=== PATIENT | female | born 1955 | race Caucasian/White ===

== ENCOUNTER 2021-01-29 20:47 | Observation (INO) | payer MEDICARE, OTHER ==
[2021-01-29 22:14] LABS: #Basophils 0.1 10x3/uL (0.0-0.2); #Eosinphils 0.2 10x3/uL (0.0-0.5); #Monocytes 0.6 10x3/uL (0.0-1.1); #Neutrophils 4.9 10x3/uL (1.5-8.4); %Basophils 0.7 % (0.0-2.0); %Eosinophils 2.6 % (0.0-6.0); %Lymphocytes 34.9 % (18.0-47.0); %Monocytes 7.2 % (0.0-10.0); %Neutrophils 54.4 % (40.0-75.0); Hemoglobin 11.4 g/dL (12.0-15.5); Mean Corpuscular HGB CONC 31.9 g/dL (32.0-36.0); Mean Corpuscular Hemoglobin 29.6 pg (27.0-33.0); Mean Corpuscular Volume 92.7 fl (81.6-98.3); Mean Platelet Volume 9.7 fl (7.4-10.4); Platelet Count 274 10x3/uL (150-450); Red Blood Cell (RBC) Count 3.85 10x6/uL (3.90-5.03); White Blood Cell (WBC) Count 8.9 10x3/uL (3.5-10.5)
[2021-01-29 22:29] LABS: ALT (SGPT) 8 U/L (8-55); AST (SGOT) 14 U/L (5-34); Albumin 3.9 g/dL (3.4-4.8); Alkaline Phosphatase 72 U/L (40-110); Anion Gap 15 mmol/L (10-20); BUN (Urea Nitrogen) 23 mg/dL (9.8-20.1); Bilirubin, Total 0.2 mg/dL (0.2-1.2); Calc. Creatinine Clearance 0 mL/min (70-130); Calcium 9.7 mg/dL (7.8-10.44); Carbon Dioxide 21 mmol/L (23-31); Chloride 106 mmol/L (98-107); Globulin 3.1 g/dL (2.4-3.5); Glucose 94 mg/dL (80-115); Potassium 3.3 mmol/L (3.5-5.1); Sodium 139 mmol/L (136-145)
[2021-01-30 00:28] LABS: INR-International Normal Ratio 0.9; PTT 28.7 sec (22.0-33.0); Prothrombin Time 10.3 sec (9.5-12.1)
[2021-01-30 00:51] LABS: SARS-CoV-2 NAA Rapid Test Not Detected (NotDetected)
[2021-01-30] MEDS ORDERED: HYDROcodone/Acetaminophen 5/325 mg Tablet PO PRN (01:02)
[2021-01-30] MEDS ORDERED: Acetaminophen 325 MG TAB PO PRN (01:02)
[2021-01-30] MEDS ORDERED: Ondansetron PF 4 MG/2 ML Vial IVP PRN (01:02)
[2021-01-30] MEDS ORDERED: Ondansetron ODT 4 MG TAB PO PRN (01:02)
[2021-01-30] MEDS ORDERED: traMADol HCl 50 MG TAB PO PRN (01:11)
[2021-01-30] MEDS ORDERED: Furosemide 40 MG TAB PO PRN (01:11)
[2021-01-30] MEDS ORDERED: Cyclobenzaprine 10 MG TAB PO PRN (01:11)
[2021-01-30] MEDS ORDERED: POTASSIUM GLUCONATE 99 MG PO PRN (02:43)
[2021-01-30 05:30] LABS: Cardiac Risk 3.9 (Less than 4.5)
[2021-01-30] MEDS ORDERED: Aspirin 81 mg Enteric Coated Tablet ONE (08:12)
[2021-01-30] MEDS ORDERED: Apixaban 5 MG TAB ONE (08:13)
[2021-01-30] MEDS ORDERED: Amlodipine 5 MG TAB ONE (08:13)
[2021-01-30] MEDS ORDERED: Potassium Chloride 20 MEQ TAB PO SCH (08:30)
[2021-01-30] MEDS ORDERED: Baclofen 10 MG TAB PO SCH (09:00)
[2021-01-30] MEDS ORDERED: Losartan Potassium 50 MG TAB PO SCH (09:00)
[2021-01-30] MEDS ORDERED: Apixaban 5 MG TAB PO SCH (09:00)
[2021-01-30] MEDS ORDERED: Hydrochlorothiazide 25 MG TAB PO SCH (09:00)
[2021-01-30] MEDS ORDERED: Zonisamide 100 MG CAP PO SCH (09:00)
[2021-01-30] MEDS ORDERED: Cyanocobalamin (Vitamin B-12) 1,000 MCG TAB PO SCH (09:00)
[2021-01-30] MEDS ORDERED: Amlodipine 5 MG TAB PO SCH (09:00)
[2021-01-30] MEDS ORDERED: DOCUSATE SODIUM 250 MG PO SCH (09:00)
[2021-01-30] MEDS ORDERED: Aspirin 81 mg Enteric Coated Tablet PO SCH (09:00)
[2021-01-30 10:35] VITALS: BP 109/54
[2021-01-30] MEDS ORDERED: Potassium Chloride 20 MEQ TAB ONE (12:32)
[2021-01-30] MEDS ORDERED: Atorvastatin Calcium 40 MG TAB PO SCH (21:00)
[2021-01-30] MEDS ORDERED: DIAZEPAM 10 MG PO SCH (21:00)
== END 2021-01-30 14:40 | disposition home or self-care (01) ==
LOC: CSHERS 20:47 → INTOOBSV 01-30 00:53 → CSHERHOLD 01-30 00:53
PROVIDERS: ADMIT Emergency Medicine; ATTEND Physician Assistant Medical
DX: G45.9 Transient cerebral ischemic attack, unspecified (principal); J96.11 Chronic respiratory failure with hypoxia; I48.0 Paroxysmal atrial fibrillation; M79.7 Fibromyalgia; E78.5 Hyperlipidemia, unspecified; I10 Essential (primary) hypertension; M35.1 Other overlap syndromes; Z96.652 Presence of left artificial knee joint; D56.3 Thalassemia minor; Z79.899 Other long term (current) drug therapy; Z79.01 Long term (current) use of anticoagulants; R29.700 NIHSS score 0; Z20.822 Contact with and (suspected) exposure to COVID-19
CPT/HCPCS: 0240U; 70450; 70496; 70498; 70551; 71045; 80053; 80061; 82962; 84484; 85025; 85610; 85730; 93005; 93306; 97116; 97139 ×2; 99285; G0378; 36415; 36416

== ENCOUNTER 2021-02-02 07:52 | Outpatient (CLI) | payer MEDICARE, OTHER ==
[2021-02-02 17:22] LABS: SARS-CoV-2 PCR by NAA Not Detected (NotDetected)
== END 2021-02-02 07:53 | disposition home or self-care (01) ==
LOC: CSHLAB 07:52
PROVIDERS: ATTEND Otolaryngology Otolaryngic Allergy
DX: Z20.822 Contact with and (suspected) exposure to COVID-19 (principal); Z01.812 Encounter for preprocedural laboratory examination; Z01.810 Encounter for preprocedural cardiovascular examination; J32.2 Chronic ethmoidal sinusitis; J32.3 Chronic sphenoidal sinusitis
CPT/HCPCS: 93005; 93010; U0003; U0005

== ENCOUNTER 2021-02-07 07:29 | Day surgery (SDC) | payer MEDICARE, OTHER ==
[2021-02-03 14:34] VITALS: BMI 34.3
[2021-02-07] MEDS ORDERED: Oxymetazoline HCl 0.05% ( 15 ML ) ONE (07:30)
[2021-02-07] MEDS ORDERED: Lidocaine 1% MPF 2 ML VIAL ONE (07:30)
[2021-02-07] MEDS ORDERED: Midazolam HCl 2 mg/2 ml Vial ONE ×2 (08:12→08:52)
[2021-02-07] MEDS ORDERED: SUGAMMADEX SODIUM 500 MG/5 ML VIAL ONE (08:51)
[2021-02-07] MEDS ORDERED: Rocuronium Bromide 10 MG/ML (10ML VIAL) ONE (08:52)
[2021-02-07] MEDS ORDERED: Dexamethasone 20 MG/5 ML VIAL ONE (08:52)
[2021-02-07] MEDS ORDERED: PROPOFOL 20 ML ONE (08:52)
[2021-02-07] MEDS ORDERED: Ondansetron PF 4 MG/2 ML Vial ONE (08:52)
[2021-02-07] MEDS ORDERED: Fentanyl 100 MCG/2 ML VIAL ONE ×2 (08:52→10:57)
[2021-02-07] MEDS ORDERED: EPINEPHrine 1 MG/ML AMP ONE (09:10)
[2021-02-07] MEDS ORDERED: ceFAZolin 2 GM/Dextrose 50 ML IVPB ONE (09:16)
[2021-02-07] MEDS ORDERED: ePHEDrine Sulfate 50 MG/10 ML VIAL ONE (09:32)
[2021-02-07] MEDS ORDERED: Triamcinolone 40 MG/ML VIAL ONE (10:05)
[2021-02-10 13:37] LABS: Fungus Stain Final report (.)
[2021-02-23 12:11] LABS: Fungus Culture Final report (.)
== END 2021-02-07 12:20 | disposition home or self-care (01) ==
LOC: CSHSDC 07:29
PROVIDERS: ATTEND Otolaryngology Otolaryngic Allergy
DX: J32.2 Chronic ethmoidal sinusitis (principal); J32.3 Chronic sphenoidal sinusitis; Z79.899 Other long term (current) drug therapy; Z79.01 Long term (current) use of anticoagulants; I10 Essential (primary) hypertension
CPT/HCPCS: 87070; 87102; 87205; 87206; 88305; 88312; J0171; J0690; J1100; J2250; J2405; J2704; J3010; J3301

== ENCOUNTER 2021-05-19 09:18 | Emergency (ER) | payer MEDICARE, OTHER ==
[2021-05-19 10:21] LABS: #Basophils 0.1 10x3/uL (0.0-0.2); #Eosinphils 0.1 10x3/uL (0.0-0.5); #Monocytes 0.6 10x3/uL (0.0-1.1); #Neutrophils 1.8 10x3/uL (1.5-8.4); %Basophils 1.3 % (0.0-2.0); %Eosinophils 2.7 % (0.0-6.0); %Monocytes 12.3 % (0.0-10.0); %Neutrophils 40.3 % (40.0-75.0); Hemoglobin 10.9 g/dL (12.0-15.5); Mean Corpuscular HGB CONC 32.8 g/dL (32.0-36.0); Mean Corpuscular Hemoglobin 30.1 pg (27.0-33.0); Mean Corpuscular Volume 91.7 fl (81.6-98.3); Mean Platelet Volume 9.2 fl (7.4-10.4); Platelet Count 268 10x3/uL (150-450); RBC Distribution Width 13.2 % (11.5-14.5); Red Blood Cell (RBC) Count 3.62 10x6/uL (3.90-5.03); White Blood Cell (WBC) Count 4.5 10x3/uL (3.5-10.5)
[2021-05-19 10:36] LABS: ALT (SGPT) 12 U/L (8-55); AST (SGOT) 17 U/L (5-34); Albumin 4.1 g/dL (3.4-4.8); Alkaline Phosphatase 72 U/L (40-110); Anion Gap 12 mmol/L (10-20); BUN (Urea Nitrogen) 31 mg/dL (9.8-20.1); Bilirubin, Total 0.2 mg/dL (0.2-1.2); Calc. Creatinine Clearance 0 mL/min (70-130); Carbon Dioxide 25 mmol/L (23-31); Chloride 108 mmol/L (98-107); Globulin 2.3 g/dL (2.4-3.5); Glucose 94 mg/dL (80-115); Potassium 3.9 mmol/L (3.5-5.1); Protein, Total 6.4 g/dL (5.8-8.1); Sodium 141 mmol/L (136-145)
[2021-05-19] MEDS ORDERED: predniSONE 20 MG TAB ONE (11:03)
== END 2021-05-19 11:11 | disposition home or self-care (01) ==
LOC: CSHERS 09:18
DX: M54.12 Radiculopathy, cervical region (principal); I48.91 Unspecified atrial fibrillation
CPT/HCPCS: 71045; 80053; 84484; 85025; 93005; J7512

== ENCOUNTER 2021-09-15 09:22 | Emergency (ER) | payer MEDICARE, OTHER ==
[2021-09-15] MEDS ORDERED: Morphine 4 MG/ML VIAL ONE (09:59)
[2021-09-15] MEDS ORDERED: Morphine 2 MG/ML VIAL ONE (09:59)
[2021-09-15 10:08] LABS: #Eosinphils 0.1 10x3/uL (0.0-0.5); #Monocytes 0.4 10x3/uL (0.0-1.1); #Neutrophils 2.1 10x3/uL (1.5-8.4); %Basophils 0.9 % (0.0-2.0); %Eosinophils 2.8 % (0.0-6.0); %Lymphocytes 36.8 % (18.0-47.0); %Neutrophils 49.3 % (40.0-75.0); Hemoglobin 12.1 g/dL (12.0-15.5); Mean Corpuscular HGB CONC 32.9 g/dL (32.0-36.0); Mean Corpuscular Hemoglobin 29.4 pg (27.0-33.0); Mean Corpuscular Volume 89.5 fl (81.6-98.3); Mean Platelet Volume 9.2 fl (7.4-10.4); Platelet Count 291 10x3/uL (150-450); RBC Distribution Width 12.6 % (11.5-14.5); Red Blood Cell (RBC) Count 4.11 10x6/uL (3.90-5.03); White Blood Cell (WBC) Count 4.3 10x3/uL (3.5-10.5)
[2021-09-15 10:29] LABS: ALT (SGPT) 139 U/L (8-55); AST (SGOT) 69 U/L (5-34); Albumin 4.5 g/dL (3.4-4.8); Alkaline Phosphatase 164 U/L (40-110); Anion Gap 16 mmol/L (10-20); BUN (Urea Nitrogen) 27 mg/dL (9.8-20.1); Bilirubin, Total 0.4 mg/dL (0.2-1.2); Calc. Creatinine Clearance 0 mL/min (70-130); Calcium 9.8 mg/dL (7.8-10.44); Carbon Dioxide 23 mmol/L (23-31); Chloride 104 mmol/L (98-107); Globulin 3.2 g/dL (2.4-3.5); Glucose 114 mg/dL (80-115); Lipase 60 U/L (8-78); Potassium 3.5 mmol/L (3.5-5.1); Protein, Total 7.7 g/dL (5.8-8.1); Sodium 139 mmol/L (136-145)
[2021-09-15] MEDS ORDERED: Iopamidol 300 61% 100 ML VIAL FS ONE (13:03)
== END 2021-09-15 11:35 | disposition home or self-care (01) ==
LOC: CSHERS 09:22
DX: R10.11 Right upper quadrant pain (principal); R10.13 Epigastric pain; R19.7 Diarrhea, unspecified
CPT/HCPCS: 74177; 80053; 83690; 85025; 93005; 96374; 99284; J2270; Q9967

== ENCOUNTER 2022-01-30 09:31 | Outpatient (CLI) | payer MEDICARE, OTHER | END 2022-01-30 09:32 | disposition home or self-care (01) | LOC: CSHMRI 09:31 | PROVIDERS: ATTEND Orthopaedic Surgery | DX: M75.102 Unspecified rotator cuff tear or rupture of left shoulder, not specified as traumatic (principal); M75.122 Complete rotator cuff tear or rupture of left shoulder, not specified as traumatic; M75.82 Other shoulder lesions, left shoulder ==

== ENCOUNTER 2022-10-12 12:20 | Outpatient (CLI) | payer MEDICARE, OTHER | END 2022-10-12 12:21 | disposition home or self-care (01) | LOC: CSHULT 12:20 | PROVIDERS: ATTEND Otolaryngology Plastic Surgery within the Head & Neck | DX: E04.1 Nontoxic single thyroid nodule (principal); E04.2 Nontoxic multinodular goiter | CPT/HCPCS: 76536 ==

== ENCOUNTER 2023-10-29 10:58 | Outpatient (CLI) | payer MEDICARE, OTHER | END 2023-10-29 10:59 | disposition home or self-care (01) | LOC: CSHRAD 10:58 | PROVIDERS: ATTEND Internal Medicine Rheumatology | DX: M25.541 Pain in joints of right hand (principal); M15.4 Erosive (osteo)arthritis ==

== ENCOUNTER 2024-03-24 17:10 | Emergency (ER) | payer MEDICARE, OTHER ==
[2024-03-24 18:20] LABS: #Basophils 0.05 10x3/uL (0.0-0.2); #Eosinophils 0.16 10x3/uL (0.0-0.5); #Monocytes 0.58 10x3/uL (0.0-1.1); #Neutrophils 3.25 10x3/uL (1.5-8.4); %Basophils 0.9 % (0.0-2.0); %Eosinophils 2.8 % (0.0-6.0); %Lymphocytes 30.1 % (18.0-47.0); Hematocrit 38.3 % (34.9-44.5); Hemoglobin 12.6 g/dL (12.0-15.5); Mean Corpuscular HGB CONC 32.9 g/dL (32.0-36.0); Mean Corpuscular Hemoglobin 29.8 pg (27.0-33.0); Mean Corpuscular Volume 90.5 fL (81.6-98.3); Mean Platelet Volume 9.6 fL (7.4-10.4); Platelet Count 281 10x3/uL (150-450); RBC Distribution Width 12.5 % (11.5-14.5); Red Blood Cell (RBC) Count 4.23 10x6/uL (3.90-5.03); White Blood Cell (WBC) Count 5.8 10x3/uL (3.5-10.5)
[2024-03-24 18:25] LABS: PTT 25.9 sec (22.0-33.0); Prothrombin Time 10.5 sec (9.5-12.1)
[2024-03-24 18:29] LABS: ALT (SGPT) 16 U/L (8-55); AST (SGOT) 19 U/L (5-34); Albumin 3.8 g/dL (3.4-4.8); Alkaline Phosphatase 77 U/L (40-110); Anion Gap 15 mmol/L (10-20); BUN (Urea Nitrogen) 29 mg/dL (9.8-20.1); Bilirubin, Total 0.2 mg/dL (0.2-1.2); Calc. Creatinine Clearance 0 mL/min (70-130); Calcium 9.6 mg/dL (7.8-10.44); Carbon Dioxide 24 mmol/L (23-31); Chloride 103 mmol/L (98-107); Estimated GFR 65; Globulin 3.1 g/dL (2.4-3.5); Glucose 100 mg/dL (80-115); Lipase 20 U/L (8-78); Magnesium 1.7 mg/dL (1.6-2.6); Protein, Total 6.9 g/dL (5.8-8.1); Sodium 139 mmol/L (136-145)
[2024-03-24 18:35] LABS: Troponin I Less than 0.010 ng/mL (< 0.028)
[2024-03-24] MEDS ORDERED: Potassium Chloride 20 MEQ TAB ONE (18:59)
[2024-03-24 21:16] LABS: Troponin I Less than 0.010 ng/mL (< 0.028)
== END 2024-03-24 22:35 | disposition short-term general hospital (02) ==
LOC: CSHERS 17:10
DX: R07.9 Chest pain, unspecified (principal)
CPT/HCPCS: 36415; 71045; 80053; 83690; 83735; 83880; 84484; 85025; 85610; 85730; 93005

== ENCOUNTER 2024-08-07 09:55 | Emergency (ER) | payer MEDICARE, OTHER ==
[2024-08-07] MEDS ORDERED: Morphine 4 MG/ML VIAL ONE ×2 (10:27→12:43)
[2024-08-07] MEDS ORDERED: Ondansetron PF 4 MG/2 ML Vial ONE (10:27)
[2024-08-07 12:07] LABS: #Basophils 0.04 10x3/uL (0.0-0.2); #Eosinophils 0.09 10x3/uL (0.0-0.5); #Monocytes 0.55 10x3/uL (0.0-1.1); #Neutrophils 5.09 10x3/uL (1.5-8.4); %Basophils 0.5 % (0.0-2.0); %Eosinophils 1.2 % (0.0-6.0); %Lymphocytes 21.9 % (18.0-47.0); %Monocytes 7.4 % (0.0-10.0); %Neutrophils 68.7 % (40.0-75.0); Hematocrit 34.2 % (34.9-44.5); Hemoglobin 10.7 g/dL (12.0-15.5); Mean Corpuscular HGB CONC 31.3 g/dL (32.0-36.0); Mean Corpuscular Hemoglobin 29.6 pg (27.0-33.0); Mean Corpuscular Volume 94.5 fL (81.6-98.3); Platelet Count 214 10x3/uL (150-450); RBC Distribution Width 12.5 % (11.5-14.5); Red Blood Cell (RBC) Count 3.62 10x6/uL (3.90-5.03); White Blood Cell (WBC) Count 7.41 10x3/uL (3.5-10.5)
[2024-08-07 12:22] LABS: PTT 25.6 sec (22.0-33.0); Prothrombin Time 10.6 sec (9.5-12.1)
[2024-08-07 12:26] LABS: ALT (SGPT) 25 U/L (Less than 34); AST (SGOT) 28 U/L (11-34); Albumin 3.4 g/dL (3.1-4.5); Alkaline Phosphatase 78 U/L (40-110); Anion Gap 11 mmol/L (10-20); BUN (Urea Nitrogen) 28 mg/dL (9.8-20.1); Bilirubin, Total 0.2 mg/dL (0.3-1.2); Calc. Creatinine Clearance 0 mL/min (70-130); Calcium 8.9 mg/dL (7.8-10.44); Carbon Dioxide 24 mmol/L (23-31); Chloride 108 mmol/L (98-107); Estimated GFR 76; Globulin 2.7 g/dL (2.4-3.5); Glucose 97 mg/dL (80-115); Potassium 4.1 mmol/L (3.5-5.1); Protein, Total 6.1 g/dL (5.8-8.1); Sodium 139 mmol/L (136-145)
[2024-08-07] MEDS ORDERED: Iopamidol 300 61% 100 ML VIAL FS ONE (13:49)
[2024-08-07] MEDS ORDERED: fentaNYL 50 mcg/mL 1 mL Vial ONE (16:34)
== END 2024-08-07 18:49 ==
LOC: CSHERS 09:55
DX: S52.102A Unspecified fracture of upper end of left radius, initial encounter for closed fracture (principal); S52.022A Displaced fracture of olecranon process without intraarticular extension of left ulna, initial encounter for closed fracture; W10.9XXA Fall (on) (from) unspecified stairs and steps, initial encounter
CPT/HCPCS: 29105; 70450; 72125; 73080; 73090; 73201; 80053; 85025; 85610; 85730; 86850; 86900; 86901; 96374; 96375; 96376; 99285; J2270; J2405; J3010; 36415

== ENCOUNTER 2025-06-04 07:41 | Outpatient (CLI) | payer MEDICARE, OTHER ==
[2025-06-04 09:40] LABS: Estimated GFR - POC 61.0
[2025-06-04] MEDS ORDERED: Iopamidol 300 61% 100 ML VIAL FS ONE (11:03)
== END 2025-06-04 07:42 | disposition home or self-care (01) ==
LOC: CSHCT 07:41
PROVIDERS: ATTEND Otolaryngology Plastic Surgery within the Head & Neck
DX: J34.89 Other specified disorders of nose and nasal sinuses (principal); J34.9 Unspecified disorder of nose and nasal sinuses; J32.3 Chronic sphenoidal sinusitis
CPT/HCPCS: 82565; Q9967